=== PATIENT | male | born 1955 | race Two or more races ===

== ENCOUNTER 2024-10-14 10:47 | Emergency (ER) | payer OTHER ==
[~2024-10-14] VITALS: Ht 160 cm; Wt 57.3 kg
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
[2024-10-14 12:01] VITALS: BP 153/76; PULSE 61; RESP 12; TEMP 97.5; O2SAT 97
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
[2024-10-14] MEDS ORDERED: METH-1181 PO (13:20)
[2024-10-14] MEDS ORDERED: ACET-1080 PO (13:20)
== END 2024-10-14 13:21 | disposition home or self-care (01) ==
LOC: ER 10:47
DX: S16.1XXA Strain of muscle, fascia and tendon at neck level, initial encounter (principal); S39.012A Strain of muscle, fascia and tendon of lower back, initial encounter; M50.30 Other cervical disc degeneration, unspecified cervical region; M51.379 Other intervertebral disc degeneration, lumbosacral region without mention of lumbar back pain or lower extremity pain; W22.8XXA Striking against or struck by other objects, initial encounter; Y93.89 Activity, other specified; Y92.89 Other specified places as the place of occurrence of the external cause; Y99.8 Other external cause status
CPT/HCPCS: 72040; 72070; 72100